=== PATIENT | female | born 1945 | race Caucasian/White ===

== ENCOUNTER 2025-04-05 13:05 | Emergency (ER) | payer MEDICARE, OTHER, SELFPAY ==
[2025-04-05 13:07] VITALS: BP 138/78
[2025-04-05 13:34] VITALS: BP 128/62
--- NOTE | 2025-04-05 13:40 | ED.GENMED ---
History of Present Illness
General
Chief Complaint: Head Injury
Source: patient and family
Exam Limitations: none
Time Seen by Provider: 04/05/25 13:17
Nursing documentation reviewed up to this point in time: agreed with
History of Present Illness
History of Present Illness:
Patient is a 7-year-old female with a past medical history of chronic balance issues, vertigo and anxiety who reports that she ' made a mistake by turning quickly and reaching for something', which caused her to lose her balance and fall onto her
left side. Patient reports that she hit the left side of her head. Patient reports that she always has neck pain and stiffness but perhaps her neck pain is slightly worse after the fall. Additionally, she reports chronic low back pain but states
that her lower back hurts slightly worse on the fall. Patient reports that her daughter was able to get her up off the floor and she has been able to walk. The injury occurred just prior to arrival. She denies severe headache, vision changes,
nausea and vomiting. She denies recent fever or illness. Patient admits she has been doing too much due to the holiday season. She feels she is exhausted herself. There was no loss of consciousness. She fell onto carpeted floor
Past History
Past History
ED Past Medical History: HTN, Hypercholesterolemia, Psychiatric (Anxiety), Other (Chronic balance issues and vertigo) and Other (Chronic back pain)
ED Past Surgical History: Other
Social History
Tobacco: Non-smoker
Alcohol: None
Drug: None
Personal: Single
Living: with family
Employment: Other
Family History
Family History: Other
Review of Systems
Review of Systems
Allergies reviewed?: Yes
All Other Systems: ROS reviewed and negative except as documented in HPI and ROS
Constitutional: Reports no symptoms
EENT: Reports no symptoms
Respiratory: Reports no symptoms
Cardiac: Reports no symptoms
ABD/GI: Reports no symptoms
: Reports no symptoms
Musculoskeletal: Reports muscle pain, muscle stiffness, neck pain and back pain
Skin: Reports no symptoms
Neurological: Reports other (Chronic balance issues and vertigo)
Endocrine: Reports no symptoms
Hematologic/Lymphatic: Reports no symptoms
Psychiatric: Reports no symptoms
Phy Exam
Physical Exam
Physical Exam:
Physical Exam
General: Appears slightly anxious but appears well and comfortable. Scalp contusion left parietal area
Neck: supple. Mild right sided soft tissue neck tenderness.
Heart: s1/s2 regular rate and rhythm, no murmur. Mild right sided lumbar spine tenderness
Lungs: no acute respiratory distress. clear bilaterally. No chest wall tenderness
Abdomen: normal bowel sounds. not tender. no CVAT
Neuro: alert and oriented x 3 no focal neurological deficits. Normal finger-nose. 5 out of 5 strength in all extremities without drift
Skin: no rash
Psychiatric: well kept. interactive and cooperative
Extremities: Nontender upper and lower extremities. Nontender pelvis and hips
Course
Orders/Labs/Results
Orders:
Orders
04/05/25 13:39
Electrocardiogram (*1) Urgent
Reason for Study: Vertigo / Dizzy
Other Reason for Exam: chronic balance issues
CT Cervical Spine W/o Iv Contr Urgent
Comment:
Reason For Exam: fall, neck pain
CT Head W/o Iv Contrast Urgent
Comment:
Reason For Exam: fall, hit head
EKG- Treatment ONCE
Lumbar Spine Complete, 4 View [CR Lumbar Spine Comp Min 4 Vw*] Urgent
Comment:
Reason For Exam: fall, low back pain
Vital Signs
Initial and Last Documented VS:
Initial Vital Signs
Temp Pulse Resp BP Pulse Ox
98.0 F 101 20 138/78 98
04/05/25 13:07 04/05/25 13:07 04/05/25 13:07 04/05/25 13:07 04/05/25 13:07
Last Documented Vital Signs
Temp Pulse Resp BP Pulse Ox
98.0 F 89 21 128/62 98
04/05/25 13:07 04/05/25 13:35 04/05/25 13:35 04/05/25 13:34 04/05/25 14:45
MDM/Problems Addressed
Differential Diagnosis Includes:
Acute fall due to chronic balance issues, acute fall due to dehydration, closed head injury
MDM/Problems Addressed:
Patient presents with acute scalp contusion, acute on chronic neck and back pain due to fall
Chronic conditions affecting care: HTN
Acute Exacerbation and/or Progression of Chronic Illness:
Patient is acutely hypertensive, likely due to anxiety
Acute Exacerbation and/or Progression of Chronic Illness: HTN
*Radiology
Radiology exam reviewed: preliminary read by ED provider (L-spine x-ray reviewed by me. No acute fracture) and radiology read reviewed
*Pulse Oximetry
SaO2: 98
Oxygen Mode of Delivery: Room air
Patient hypoxic: no
*EKG
Interpreted by ED Provider?: Yes
Interpretation: normal
Comparison EKG: no comparison EKG present
Rate: normal
[place]: normal axis
Interval: normal interval
QRS Pattern: normal QRS
Ischemia: no ischemia
*Sports Therapist Interpretation
Rate: normal
Interpretation: normal
Rhythm: sinus
*Critical Care Note
Total Time (30-74mins, 75-104mins- exclusive of procedures): Not Applicable
Data Reviewed
Source: patient and family
Patient Management
Social determinants of health affecting care: Living situation and Strong social support
Escalation/DeEscalation of care consider admission/obs:
Patient continues to appear well without any severe headache, nausea, or vomiting
ED Attending Note
-
Portions of this chart may have been created with voice recognition software.� Occasional wrong word or��sound alike� substitutions may have occurred due to the inherent limitations of voice recognition software.
Discharge Plan
Departure
Patient Disposition: Home (Routine Discharge)
Date of Disposition: 04/05/25
Time of Disposition: 15:18
Patient with high blood pressure during this ER visit?: Yes
Condition: Good
Covid-19: Not Applicable
Discharge Problem:
Closed head injury, Contusion of scalp
Instructions: Head Injury in Adults (DC), Contusion (DC), BLOOD PRESSURE
Referrals:
Eric Shen MD [Family Provider, [facility]]
Activity Restrictions/Additional Instructions:
I an ice pack to the bruise on your scalp for up to 10 minutes at a time several times a day. Return for any severe dizziness, vision changes or vomiting
Interventions
Interventions:
*ED COVID-19 Vaccine History Last Done: 04/05/25 13:07
*ED Influenza Vaccine History Last Done: 04/05/25 13:07
*Risk Screen - Suicide (C-SSRS) Last Done: 04/05/25 13:07
ED- Neurological Assessment Last Done: 04/05/25 14:33
ED-Skin Assessment Last Done: 04/05/25 14:33
Discharge Date and Time
Print Language: PALESTINIAN
[2025-04-05 15:21] VITALS: BP 119/64
== END 2025-04-05 15:29 | disposition home or self-care (01) ==
LOC: EMR 13:05
PROVIDERS: EMERGENCY PHYSICIAN Emergency Medicine; FAMILY PHYSICIAN Student in an Organized Health Care Education/Training Program
DX: S00.03XA Contusion of scalp, initial encounter (principal); W01.0XXA Fall on same level from slipping, tripping and stumbling without subsequent striking against object, initial encounter; I10 Essential (primary) hypertension; E78.00 Pure hypercholesterolemia, unspecified; R42 Dizziness and giddiness; F41.9 Anxiety disorder, unspecified; M54.50 Low back pain, unspecified; G89.29 Other chronic pain
CPT/HCPCS: 99284; 70450; 72110; 72125; 93005